=== PATIENT | male | born 1980 | race Caucasian/White ===

== ENCOUNTER 2024-02-22 22:50 | Emergency (ER) | payer OTHER ==
[~2024-02-22] VITALS: Ht 182.9 cm; Wt 136.4 kg
[~2024-02-22 22:50] MED LIST: HYDR2TAB37 PO; MORP-131 PO
[2024-02-22 22:54] VITALS: TEMP 98
[2024-02-22 23:18] LABS: PH,URINE DRUG SCREEN 7.5 (5.0-8.0)
[2024-02-22 23:24] LABS: ALCOHOL, URINE DRUG SCREEN NEGATIVE (NEGATIVE); AMPHET/METH SCREEN,URINE NEGATIVE (NEGATIVE); BARBITURATE SCREEN, URINE NEGATIVE (NEGATIVE); BENZODIAZEPINES SCREEN,URINE NEGATIVE (NEGATIVE); CANNABINOID SCREEN,URINE NEGATIVE (NEGATIVE); COCAINE SCREEN,URINE NEGATIVE (NEGATIVE); METHADONE SCREEN, URINE NEGATIVE (NEGATIVE); OPIATE SCREEN,URINE NEGATIVE (NEGATIVE); PHENCYCLIDINE SCREEN,URINE NEGATIVE (NEGATIVE)
[2024-02-22 23:55] VITALS: BP 125/88; PULSE 87; RESP 16
== END 2024-02-23 00:30 | disposition home or self-care (01) ==
LOC: EMS 22:50
DX: R42 Dizziness and giddiness (principal); J45.909 Unspecified asthma, uncomplicated; G89.29 Other chronic pain; Z90.49 Acquired absence of other specified parts of digestive tract; Z02.83 Encounter for blood-alcohol and blood-drug test
CPT/HCPCS: 80307; 99283

== ENCOUNTER 2024-06-14 03:27 | Emergency (ER) | payer OTHER ==
[~2024-06-14] VITALS: Ht 182.9 cm; Wt 136.4 kg
[2024-06-14 03:31] VITALS: TEMP 98
[2024-06-14] MEDS: HYDROCODONE/ACETAMINOPHEN 7.5-325 MG/15 ML SOLUTION UDCUP PO ONE (05:43)
[2024-06-14] MEDS: DiphenhydrAMINE HCL 50 MG/ML VIAL IVP ONE (05:44)
[2024-06-14] MEDS: KETOROLAC TROMETHAMINE 30 MG/ML VIAL IVP ONE (05:44)
[2024-06-14] MEDS: METOCLOPRAMIDE HCL 5 MG/ML 2 ML VIAL IVP ONE (05:44)
[2024-06-14] MEDS: SODIUM CHLORIDE 0.9% 1,000 ML IV ONE (05:44)
[2024-06-14 05:52] LABS: EOSINOPHILS % (AUTO) 6.8 % (1.0-6.0); HEMATOCRIT 38.9 % (41-53); HEMOGLOBIN 13.1 g/dL (13.5-17.5); LYMPHOCYTES % (AUTO) 24.5 % (22.0-44.0); MEAN CORPUSCULAR HGB CONC 33.5 G/dL (31.0-37.0); MEAN CORPUSCULAR VOLUME 90 fL (80-100); MONOCYTES % (AUTO) 11.8 % (2.0-9.0); NEUTROPHILS # (AUTO) 4.7 K/uL (1.8-7.7); NEUTROPHILS % (AUTO) 55.9 % (40.0-70.0); PLATELET COUNT (AUTO) 420 K/uL (150-450); RED BLOOD CELL COUNT(AUTO) 4.35 MIL/uL (4.50-5.90); RED CELL DISTRIBUTION WIDTH 14.5 % (11.5-14.5); WHITE BLOOD COUNT (AUTO) 8.4 K/uL (4.5-11.0)
[2024-06-14 06:03] LABS: ANION GAP 7 mmol/L (8-16); CALCIUM, TOTAL 8.6 mg/dL (8.8-10.5); CARBON DIOXIDE 28 mmol/L (22-29); CHLORIDE 103 mmol/L (98-107); CREATININE 1.02 mg/dL (0.60-1.30); GLOMERULAR FILTR. RATE CALC > 60 mL/min (>60); GLUCOSE,RANDOM 102 mg/dL (70-110); POTASSIUM 4.1 mmol/L (3.5-5.1); SODIUM SERUM 138 mmol/L (136-145); UREA NITROGEN, BLOOD 19 mg/dL (7-18)
[2024-06-14 06:22] VITALS: BP 156/108; PULSE 89; RESP 20
[2024-06-14] MEDS ORDERED: PERCT PO (07:36)
== END 2024-06-14 08:08 | disposition home or self-care (01) ==
LOC: EMS 03:27
DX: G43.909 Migraine, unspecified, not intractable, without status migrainosus (principal); K08.89 Other specified disorders of teeth and supporting structures; J45.909 Unspecified asthma, uncomplicated; G89.29 Other chronic pain; M54.9 Dorsalgia, unspecified; Z88.0 Allergy status to penicillin; Z90.49 Acquired absence of other specified parts of digestive tract; Z88.2 Allergy status to sulfonamides
CPT/HCPCS: 99284; 96374; 96375; 96361; 80048; 85025; 36415; J1200; J1885; J2765; J7030